=== PATIENT | male | born 1990 | race Caucasian/White ===

== ENCOUNTER 2025-09-21 08:47 | Emergency (ER) | payer BC, SELFPAY ==
[2025-09-21 08:49] VITALS: BP 165/108; BMI 28.0
[2025-09-21] MEDS: TORADOL 15 MG IM (09:00)
[2025-09-21 09:47] VITALS: BP 140/83
[2025-09-21 10:02] LABS: Hematocrit 41.7 % (39.0-52.0); Hemoglobin 14.1 g/dL (13.0-18.0); Mean Corp Hgb Conc. 33.8 g/dL (33.0-37.0); Mean Corpuscular Volume 83.4 fL (80.0-94.0); Nucleated Red Blood Cells % 0 % (-); Platelet Count 150 10^3/uL (130-400); Red Cell Dist. Width 12.8 % (11.5-14.5)
--- NOTE | 2025-09-21 10:09 | ED.GENMED ---
History of Present Illness
General
Chief Complaint: Flank Pain
Source: patient
Exam Limitations: none
Time Seen by Provider: 09/21/25 09:57
History of Present Illness
History of Present Illness:
35yoM with no significant past medical history presenting for evaluation of flank pain. Patient has been having cloudy urine and some mild burning with urination over the past few days. He had a bowel movement this morning around 5 AM and went to
sit on the couch. He reports an abrupt onset of pain in his left flank which was gradually worsening and became excruciating. He describes a burning pain in the area which radiates to the left lower abdomen. He took a leftover antibiotic dose and
decided to come to the ED. He reports nausea but has not vomited. He denies any testicular pain, scrotal swelling, penile discharge, fevers. No prior history of kidney stones although his father has had kidney stones before.
Past History
Past History
ED Past Medical History: Other (Cluster Headache); Negative Asthma, HTN, Hypercholesterolemia or NIDDM
ED Past Surgical History: None
Social History
Tobacco: Non-smoker
Alcohol: None
Personal:
Living: with family
Phy Exam
General Physical Exam
General Presentation: well appearing and no apparent distress
General age: appears stated age
General Skin: warm and dry
General Habitus: normal
General Mental: alert
ENT Exam
ENT Exam: normocephalic
Pulmonary Exam
Pulmonary Exam: no respiratory distress
Gastrointestinal Exam
Gastrointestinal Exam: non tender, soft, non distended and no cva tenderness
Neurological Exam
Neurological Exam: alert
Sullivan Coma Scale
Eye Opening: Spontaneous
Verbal Response: Oriented
Motor Response: Obeys Commands
GCS Total Score: 15
Skin Exam
Skin Exam: normal color and warm/dry
Psychiatric Exam
Psychiatric Exam: normal mood/affect
Course
Orders/Labs/Results
Orders:
Orders
09/21/25 08:58
Ketorolac [Toradol] 15 mg .ROUTE .STK-MED ONE
09/21/25 09:00
Ketorolac [Toradol] 15 mg IM NOW STA
09/21/25 09:42
Complete Blood Count/With Diff Urgent
Comprehensive Metabolic Panel Urgent
09/21/25 10:05
CT Abd/pel Without Iv Or Oral Urgent
Comment:
Reason For Exam: L flank pain
0.9% Sodium Chloride 1000 ml [Nss] 1,000 ml IV BOLUS
09/21/25 10:22
Urinalysis Reflex To Culture Urgent
Date Specimen was Collected: 09/21/25
Time Specimen was Collected: 10:21
Urine Microscopic Reflex Cult Urgent
Urine Culture Urgent
MACK Source: U
Specimen Description:
Date Specimen was Collected: 09/21/25
Time Specimen was Collected: 10:21
09/21/25 12:02
Add On - Microbiology Urgent
Tests Added?: urine culture
Ketorolac [Toradol] 15 mg IV NOW STA
Abnormal Lab Results
09/21/25 09/21/25
09:42 10:22
MPV 11.2 H fL
(7.4-10.4)
Absolute Neuts (auto) 7.6 H 10^3/uL
(1.4-6.5)
Absolute Lymphs (auto) 0.9 L 10^3/uL
(1.2-3.4)
Neutrophils % 85.3 H %
(42.2-75.2)
Lymphocytes % 9.9 L %
(20.5-51.1)
Sodium 134 L mmol/L
(135-145)
Glucose 119 H mg/dl
(70-99)
Alkaline Phosphatase 36 L U/L
(38-126)
Ur Occult Blood Reflex 4+ A
(Negative)
Urine RBC 50-60 A /HPF
(0-2)
Urine Bacteria (Reflex) Few A
(Negative)
Urine Albumin (Reflex) 2+ A
(Neg - Trace)
09/21/25 09:42
09/21/25 09:42
Vital Signs
Initial and Last Documented VS:
Initial Vital Signs
Temp Pulse Resp BP Pulse Ox
98.5 F 127 22 165/108 100
09/21/25 08:49 09/21/25 08:49 09/21/25 08:49 09/21/25 08:49 09/21/25 08:49
Last Documented Vital Signs
Temp Pulse Resp BP Pulse Ox
97.8 F 92 15 119/86 99
09/21/25 10:37 09/21/25 12:28 09/21/25 12:28 09/21/25 12:28 09/21/25 12:28
MDM/Problems Addressed
Differential Diagnosis Includes:
35yoM here with L flank pain that began abruptly this AM. Has been having cloudy urine x 3 days. Received IM Toradol in triage with improvement. He is well appearing on initial exam. No abdominal or CVA tenderness noted. Differential diagnosis
includes: kidney stone, musculoskeletal, doubt AAA
Initial ED plan: Check CBC, CMP, UA, and CT abdomen without contrast. IV fluid bolus.
*Pulse Oximetry
SaO2: 98
Oxygen Mode of Delivery: Room air
Patient hypoxic: no
*Critical Care Note
Total Time (30-74mins, 75-104mins- exclusive of procedures): Not Applicable
Update Note
Update Note:
Labs unremarkable including normal white count and renal function. UA with 4+ blood without signs of infection. CT negative for hydronephrosis or ureterolithiasis. R renal lesion seen incidentally for which radiology is recommending outpatient CT
with contrast for further evaluation. Patient informed of this finding and copy of radiology report provided. Suspect passed stone. Urine culture added for completeness. Supportive care discussed. Advised f/u with PCP and urology. ED return
precautions reviewed and patient discharged in stable condition.
ED Attending Note
-
Portions of this chart may have been created with voice recognition software.� Occasional wrong word or��sound alike� substitutions may have occurred due to the inherent limitations of voice recognition software.
Discharge Plan
Departure
Patient Disposition: Home (Routine Discharge)
Date of Disposition: 09/21/25
Time of Disposition: 12:03
Patient with high blood pressure during this ER visit?: No
Discharge Problem:
Left flank pain, Microscopic hematuria, Lesion of right beaver kidney
Instructions: Flank Pain (DC)
Prescriptions:
No Action
No Current Medications
Referrals:
Benito Campbell MD [Active, Urology]
Luana Rm PA-C [Family Provider, Family Practice]
Activity Restrictions/Additional Instructions:
Take Tylenol and ibuprofen as needed for pain.
You will need a CT scan with contrast to further evaluate the spot seen on the right kidney.
Please call today to schedule follow-up appointments with your family doctor and urology. Return to the ER with any new or worsening symptoms including severe pain or fevers.
Interventions
Interventions:
*Risk Screen - Suicide Last Done: 09/21/25 08:49
*General Assessment Last Done: 09/21/25 08:49
*Neglect/Abuse Screening Last Done: 09/21/25 08:49
*ED- Fall Risk Assessment Last Done: 09/21/25 08:49
*ED COVID-19 Vaccine History Last Done: 09/21/25 08:49
*ED Influenza Vaccine History Last Done: 09/21/25 08:49
*Nursing Disposition Last Done: 09/21/25 12:39
CQ-Sjzkzq-Mxdoshrlxa Assessment Last Done: 09/21/25 10:19
ED-Male Genitourinary Assessment Last Done: 09/21/25 10:19
Discharge Date and Time
Discharge Date/Time: 09/21/25 12:41
Print Language: TURKISH
[2025-09-21 10:19] LABS: ALT (SGPT) 23 U/L (0-50); AST (SGOT) 20 U/L (17-59); Albumin 4.7 g/dl (3.5-5.0); Alkaline Phosphatase 36 U/L (38-126); Blood Urea Nitrogen 15 mg/dl (9-20); Calcium 9.5 mg/dl (8.4-10.2); Carbon Dioxide 27 mmol/L (22-30); Chloride 102 mmol/L (98-107); Estimated Creatinine Clearance 92 ml/min; Glucose 119 mg/dl (70-99); Potassium 4.3 mmol/L (3.5-5.1); Sodium 134 mmol/L (135-145); Total Protein 7.6 g/dl (6.3-8.2); eGFR > 60.00
[2025-09-21 10:33] LABS: Urine Character Clear (Clear)
[2025-09-21] MEDS: NSS 1000 IV (10:35)
[2025-09-21 10:37] VITALS: BP 122/83
[2025-09-21 11:20] LABS: Urine Red Blood Cell 50-60 /HPF (0-2)
[2025-09-21 12:28] VITALS: BP 119/86
[2025-09-21] MEDS: TORADOL 15 MG IV (12:30)
== END 2025-09-21 12:41 | disposition home or self-care (01) ==
LOC: EMR 08:47
PROVIDERS: Physician Assistant; EMERGENCY PHYSICIAN Emergency Medicine; FAMILY PHYSICIAN Physician Assistant Medical
DX: R10.A2 Flank pain, left side (principal); R31.29 Other microscopic hematuria; N28.89 Other specified disorders of kidney and ureter
CPT/HCPCS: 96372; 96374; 96361; 99284; 74176; 80053; 81003; 81015; 85025; 87086

== ENCOUNTER → 2025-10-04 12:38 | Outpatient (REF) | payer BC, SELFPAY | LOC: RAD 12:38 | PROVIDERS: ATTENDING PHYSICIAN Physician Assistant Medical | DX: N28.9 Disorder of kidney and ureter, unspecified (principal) | CPT/HCPCS: 74170; Q9967 ==